=== PATIENT | female | born 2005 | race Caucasian/White ===

== ENCOUNTER 2025-05-22 15:41 | Emergency (ER) | payer OTHER, SELFPAY ==
[2025-05-22 15:44] VITALS: BP 112/73
--- NOTE | 2025-05-22 17:22 | ED.MUSCINJ ---
HPI-Injury
General
Chief Complaint: Musculo-Skeletal Complaint
Source: patient
Exam Limitations: none
Time Seen by Provider: 05/22/25 17:12
Nursing documentation reviewed up to this point in time: agreed with
History of Present Illness-Injury
Is this injury a work related problem?: No
Is pt an associate of [facility]/[place]?: No
Initial Injury comments:
Patient to the emergency department for evaluation of right shoulder pain. Patient states she slipped and fell down steps at home. She tried to grab onto the railing and injured her shoulder. Injury occurred yesterday. She was brought to the
emergency department by parents for evaluation.
Past History
Past History
ED Past Medical History: None
Review of Systems
Review of Systems
Allergies reviewed?: Yes
All Other Systems: ROS reviewed and negative except as documented in HPI and ROS
Constitutional: Reports no symptoms
Musculoskeletal: Reports joint pain (Pain to right shoulder)
Skin: Reports no symptoms
Neurological: Reports no symptoms
Psychiatric: Reports no symptoms
Musculoskeletal Injury Exam
Musculoskeletal Injury Exam
Right Lateral Shoulder:
Pain with Movement?: Moderate
Tender to palpation?: Mild
Soft tissue swelling?: None
External deformity and angulation?: None
Joint effusion?: None
Contusion?: None
Hematoma-local bleeding into tissue?: None
Strain- Sprain- Tear (Connective tissue injury)?: Moderate
Crepitus with movement?: No
Joint instability?: No
Malalignment/deformity?: No
Range of motion: Limited
Distal skin color and temperature: normal-warm & good color
Capillary Refill: normal
Normal distal neurovascular exam?: Yes
Phy Exam
General Physical Exam
General Presentation: well appearing and mild distress
General age: appears stated age
General Skin: warm and dry
General Habitus: normal
General Mental: alert
Musculoskeletal Exam
Musculoskeletal Exam: neuro vasc intact and other (Pain to right lateral shoulder. She has limited range of motion to the shoulder due to pain with movement. Right upper extremity is neurovascularly intact. There is no pain over right clavicle or
right AC joint. There is no bruising or swelling to shoulder joint.)
Skin Exam
Skin Exam: normal color, warm/dry and no rash
Psychiatric Exam
Psychiatric Exam: normal mood/affect
Injury Course
Orders/Labs/Results
Orders:
Orders
05/22/25 15:49
Shoulder, Right, Trauma [CR Shoulder, Trauma - Right] Urgent
Comment:
Reason For Exam: right shoulder injury
05/22/25 17:19
Sling Right-Treatment ONCE
*Radiology
Radiology exam reviewed: radiology read reviewed
*Pulse Oximetry
SaO2: 100
Oxygen Mode of Delivery: Room air
Patient hypoxic: no
*Critical Care Note
Total Time (30-74mins, 75-104mins- exclusive of procedures): Not Applicable
Update Note
Update Note:
Patient to emergency department for evaluation of right shoulder pain. She states she slipped down steps yesterday and grabbed onto a railing during her fall and injured her right shoulder. Pain located right lateral shoulder. There is no pain to
clavicle or AC joint. Right upper extremity is neurovascularly intact. There is no bruising or swelling to shoulder joint. X-ray reviewed, no evidence of fracture or dislocation. She was placed in a shoulder immobilizer sling. She is discharged
home and will follow-up with orthopedics if her symptoms are not improving over the course of the next week.
ED Attending Note
-
Portions of this chart may have been created with voice recognition software.� Occasional wrong word or��sound alike� substitutions may have occurred due to the inherent limitations of voice recognition software.
Discharge Plan
Departure
Patient Disposition: Home (Routine Discharge)
Date of Disposition: 05/22/25
Time of Disposition: 17:19
Patient with high blood pressure during this ER visit?: No
Condition: Good
Covid-19: Not Applicable
Discharge Problem:
Shoulder sprain
Instructions: Ibuprofen, How to Use a Shoulder Sling, Using Cold for Pain, Shoulder Sprain ED
Referrals:
Remi Ordonez MD [Active, Orthopedics]
Referral Note: Follow-up if your symptoms do not improve over the course of next week.
Interventions
Interventions:
ED-Musculoskeletal Assessment Last Done: 05/22/25 17:00
Discharge Date and Time
Print Language: MONEGASQUE
--- NOTE | 2025-05-22 17:43 | EDRN ---
Pt complained, 'I didn't even see a real doctor. I wasn't given a tylenol, with water.' 'I wasn't given any suggestions for exercises,' pt physicallty pushed paper away after signing for sling. Parents at bedside. I offered to ask [employer] for tylenol
order, mother said she would give at home.
== END 2025-05-22 17:47 | disposition home or self-care (01) ==
LOC: EMR 15:41
PROVIDERS: EMERGENCY PHYSICIAN Emergency Medicine; FAMILY PHYSICIAN Internal Medicine
DX: S43.401A Unspecified sprain of right shoulder joint, initial encounter (principal); X50.1XXA Overexertion from prolonged static or awkward postures, initial encounter; W10.9XXA Fall (on) (from) unspecified stairs and steps, initial encounter; Y92.009 Unspecified place in unspecified non-institutional (private) residence as the place of occurrence of the external cause
CPT/HCPCS: 99283; 73030